=== PATIENT | female | born 1960 | race Caucasian/White ===

== ENCOUNTER 2018-08-23 09:57 | Day surgery (SDC) | payer BC ==
[2018-08-22 16:08] LABS: Absolute Lymphocytes (CBC) 1.4 K/uL (0.7-4.9); Absolute Monocytes 0.5 K/uL (0.1-1.3); Absolute Neutrophil 3.7 K/uL (1.8-8.0); Basophils % 0.9 % (0-1.3); Eosinophils % 2.5 % (0-4.4); Hematocrit 37.5 % (36.0-45.0); Lymphocytes % 23.7 % (15.3-44.8); MPV 8.6 fL (7.6-11.3); Monocytes % 9.1 % (3.3-12.3)
[2018-08-22 16:12] LABS: Urine Appearance CLEAR; Urine Bilirubin NEGATIVE (NEG); Urine Blood NEGATIVE (NEG); Urine Color YELLOW; Urine Glucose NEGATIVE (NEG); Urine Protein NEGATIVE (NEG); Urine Specific Gravity 1.015 (1.005-1.030)
[2018-08-22 16:15] LABS: Urine Microscopic Reflex NO UMIC
--- NOTE | 2018-08-22 16:34 | RAD REPORT ---
EXAM DESCRIPTION: RAD - Chest Pa And Lat (2 Views) - 08/22/2018 4:08 pm CLINICAL HISTORY: Preop chest, pending left hand surgery for fracture repair COMPARISON: None. TECHNIQUE: PA and lateral views of the chest were obtained. FINDINGS: The lungs are clear of failure or focal abnormality. Interstitial markings are mildly prom inent believed to be baseline. Heart size is normal and central vasculature is within normal limits . No pleural effusion or pneumothorax seen. No acute bony finding noted. No aortic abnormality. IMPRESSION: No acute cardiopulmonary process.
--- NOTE | 2018-08-22 16:39 | RAD REPORT ---
EXAM DESCRIPTION: RAD - Hand Right 3 View - 08/22/2018 4:08 pm COMPARISON: None. FINDINGS: Fracture deformity is present in the distal phalanx fifth digit. There is bone defects see n in the ulna side base of the distal phalanx is well is bone loss change along the ventral margin of the base. No air or foreign body in the soft tissues adjacent to the fracture deformity. There is significant soft tissue swelling over the dorsum of the hand but no carpal or metacarpal fra cture identifiable. No acute joint abnormality. There is no dislocation or periosteal reaction noted. No foreign body identified. IMPRESSION: Fracture defect is present involving the ulna side end ventral side of the fifth distal phalanx. No foreign body. Significant soft tissue swelling over the dorsum of the hand. No air or foreign body. No associated c arpal or metacarpal injury identifiable.
--- NOTE | 2018-08-23 06:59 | EKG ---
Test Date: 2018-08-22 Test Time: 15:39:08 Vehicle Inspector: BLANCA MEASUREMENT RESULTS: Intervals: Rate: 64 WY: 132 QRSD: 74 QT: 412 QTc: 425 Keller: P: WY: 132 QRS: 88 T: 76 INTERPRETIVE STATEMENTS: Normal sinus rhythm LVH with secondary repolarization changes Abnormal ECG No previous ECG available for comparison Electronically Signed On 08-23-18 06:59:43 POST OFFICE CLERK by Jayden Palacios
--- OUTSIDE RECORDS SUMMARY | 2018-08-23 10:00 | XMS REPORT ---
:1960 [facility] Address [address] [place] [address] [address] Care Team Providers Name Role Phone Unavailable Unavailable Unavailable Payers Payer Name Policy Type Policy Number Effective Date Expiration Date Problems This patient has no known problems. Allergies, Adverse Reactions, Alerts This patient has no known allergies or adverse reactions. Medications This patient has no known medications.
[2018-08-23] MEDS ORDERED: Ringers Lactate 1,000 ML IV ONE (10:22)
[2018-08-23] MEDS ORDERED: CEFAZOLIN 1GM (PREMIX IV) 1 GM/50 ML BAG ONE (10:28)
[2018-08-23] MEDS ORDERED: FENTANYL CITR 100 MCG/2 ML ONE (12:05)
[2018-08-23] MEDS ORDERED: MIDAZOLAM HCL 2 MG/2 ML INJ ONE (12:06)
[2018-08-23] MEDS ORDERED: PROPOFOL 200 MG/20 ML VIAL IV ONE (12:06)
[2018-08-23] MEDS ORDERED: LIDOCAINE 2% MPF 5 ML VIAL ONE (12:07)
[2018-08-23] MEDS ORDERED: ONDANSETRON 4 MG/2 ML VIAL ONE (12:07)
[2018-08-23] MEDS ORDERED: KETOROLAC 30 MG/ML INJ ONE (12:30)
[2018-08-23] MEDS: MEPERIDINE HCL 25 MG/0.5 ML ONE ×2 (13:04→13:09)
[2018-08-23] MEDS ORDERED: CODEINE 30MG/APAP 300MG TAB ONE (14:15)
--- NOTE | 2018-08-24 00:53 | OP ---
Date of Procedure: 08/23/2018 Surgeon: Cedric Santana MD Infantryman: Reggie. Preoperative Diagnosis: Multiple dog bites to the right hand. Postoperative Diagnosis: Multiple dog bites to the right hand. Procedure Performed: Debridement of skin and subcutaneous tissue of palm, little finger, and dorsal hand. Anesthesia: General. Procedure In Detail: After satisfactory induction of general anesthesia, right hand was prepped with Betadine scrub, Betadine paint. Dry sterile drapes were placed in the usual manner. Tourniquet was inflated to 250 mmHg. Hand was placed on a [place] table. An elliptical incision made over the pal m of the metacarpal of the ring finger area, approximately to the length of skin to be removed. No p us was encountered. An incision made over the right little finger over the distal phalanx. This was created in the wound that goes through and through. Then, the hand was turned over. Dorsal incisio n was made over the ulnar aspect of little finger over the flap. This was the area that dog bite cre ated the fracture of the distal phalanx of the right little finger. Then, large incision was then ma de at debridement site, which was the dorsum of the hand over the fifth metacarpal and above midshaft . Pus was encountered. Cultures were taken. A large incision was made to debride skin edges extend ing from the metacarpal head almost to the wrist. Gross amount of pus was encountered approximately 20 cc of brown, thick pus. The wound was curetted, necrotic tissue was debrided, and the wound was j et lavaged and irrigated with about 1 L of dilute Betadine solution. Tourniquet was released. Elect rocautery was used for hemostasis. Wound was packed with quarter-inch Nu Gauze, 2-inch Balaji, and Kerlix. The patient tolerated the pro cedure well and returned to recovery. GH/MODL Voice ID: [id number] Report ID: [id number]
== END 2018-08-23 14:55 | disposition home or self-care (01) ==
LOC: OR 09:57
PROVIDERS: ATTEND Specialist
PROC: 0JDJ0ZZ Extraction of Right Hand Subcutaneous Tissue and Fascia, Open Approach (ICD-10-PCS; principal; 2018-08-23 11:30)
DX: S61.451A Open bite of right hand, initial encounter (principal); Z88.6 Allergy status to analgesic agent
CPT/HCPCS: 36415; 71046; 81003; 85025; 87070; 87075; 87205; 88304; 93005; J0690; J2175; J2250; J2405; J2704; J3010

== ENCOUNTER 2018-08-28 08:24 | Day surgery (SDC) | payer BC ==
[2018-08-28] MEDS ORDERED: CEFAZOLIN 1GM (PREMIX IV) 1 GM/50 ML BAG ONE (08:50)
[2018-08-28] MEDS ORDERED: Ringers Lactate 1,000 ML IV ONE (08:50)
[2018-08-28] MEDS ORDERED: PROPOFOL 200 MG/20 ML VIAL IV ONE (09:07)
[2018-08-28] MEDS ORDERED: FENTANYL CITR 100 MCG/2 ML ONE (09:08)
[2018-08-28] MEDS ORDERED: MIDAZOLAM HCL 2 MG/2 ML INJ ONE (09:13)
[2018-08-28] MEDS ORDERED: LIDOCAINE 2% MPF 5 ML VIAL ONE (09:13)
[2018-08-28] MEDS ORDERED: ONDANSETRON 4 MG/2 ML VIAL ONE (09:14)
--- OUTSIDE RECORDS SUMMARY | 2018-08-28 09:33 | XMS REPORT ---
:1960 [facility] Address [address] [place] [address] [address] Care Team Providers Name Role Phone Unavailable Unavailable Unavailable Payers Payer Name Policy Type Policy Number Effective Date Expiration Date Problems This patient has no known problems. Allergies, Adverse Reactions, Alerts This patient has no known allergies or adverse reactions. Medications This patient has no known medications.
[2018-08-28] MEDS ORDERED: EPHEDRINE SULF 50 MG/10 ML SYR ONE (09:55)
[2018-08-28] MEDS: MEPERIDINE HCL 25 MG/0.5 ML ONE ×2 (10:20→10:25)
[2018-08-28] MEDS ORDERED: CODEINE 30MG/APAP 300MG TAB ONE (11:21)
--- NOTE | 2018-08-28 21:05 | OP ---
Surgeon: Cedric Santana MD Acid Pumper: Reggie. Preoperative Diagnosis: Dog bite to the right hand. Postoperative Diagnosis: Dog bite to the right hand. Procedures Performed: Debridement of skin and subcutaneous tissue, simple closure of 1-cm wound of dorsum of the little finger, 1 cm of volar right little finger, 1 cm of palm of the right hand, and flap closure of the dorsum of the right hand. Anesthesia: General. Procedure In Detail: After satisfactory induction of general anesthesia, the right hand was prepped with Betadine scrub and Betadine paint, and dry sterile drapes were applied in usual manner. The arm was elevated, exsanguinated with Esmarch, and tourniquet was inflated to 250 mmHg. Hand was placed on a roll lock table. Scalpel, curette, forceps, tenotomy scissors were used to debride skin and subcutaneous tissue as needed of the hand. Open wounds on dorsum, volar, as well as the right little finger. The wounds were jet lavaged, irrigated with 3 L of dilute Betadine solution. Tourniquet was released. Electrocautery was used for hemostasis. The wounds were closed with simple sutures, vertical mattress with 4-0 Prolene . The length were1 cm volar right little finger, 1 cm dorsal right little finger, then flap advancement was performed and closed with 4-0 Prolene vertical mattress and simple sutures. Dressed with Xeroform, 2-inch Balaji, and Kerlix. The patient tolerated the procedure well and returned to recovery. TANIA/KERVIN Voice ID: [id number] Report ID: [id number]
== END 2018-08-28 12:05 | disposition home or self-care (01) ==
LOC: OR 08:24
PROVIDERS: ATTEND Specialist
PROC: 0HXFXZZ Transfer Right Hand Skin, External Approach (ICD-10-PCS; 2018-08-28)
PROC: 0HQFXZZ Repair Right Hand Skin, External Approach (ICD-10-PCS; principal; 2018-08-28 09:00)
DX: S61.451A Open bite of right hand, initial encounter (principal); S61.256A Open bite of right little finger without damage to nail, initial encounter; Z88.6 Allergy status to analgesic agent
CPT/HCPCS: 88304; J0690; J2175; J2250; J2405; J2704; J3010